=== PATIENT | female | born 2000 | race Caucasian/White ===

== ENCOUNTER 2019-08-29 12:24 | Outpatient (CLI) | payer OTHER ==
[2019-08-29 12:25] LABS: BHCG - Serum Negative (NEGATIVE); Pregs Control Background? CLEAR/WHITE (CLR/WHITE); Pregs Control Bar Appear? YES (CONTROL BAR)
--- NOTE | 2019-08-29 13:50 | NM ---
NUCLEAR MEDICINE THYROID ABLATION THERAPY: HISTORY: Malignant neoplasm of thyroid gland. Status post near-total thyroidectomy 07/14/2019. Uptake head carci noma. PROCEDURE: After discussing the risks, benefits, alternatives and radiation precaution issues with the patient, verbal and written consent was obtained for radioiodine ablation therapy. The patient verbalized understanding and was treated with 94 mCi Iodine 131 orally without complications. The patient will f ollow-up with Dr. Reeder
== END 2019-08-29 12:25 | disposition home or self-care (01) ==
LOC: NM 12:24
PROVIDERS: ATTEND Internal Medicine Endocrinology, Diabetes & Metabolism
DX: C73 Malignant neoplasm of thyroid gland (principal)
CPT/HCPCS: 36415; 79005; 84703; A9517

== ENCOUNTER 2019-09-08 12:45 | Outpatient (CLI) | payer OTHER ==
--- NOTE | 2019-09-08 14:30 | NM ---
WHOLE BODY RADIOIODINE SCAN POST ABLATION THERAPY: HISTORY: A 18-year-old female with malignant neoplasm of the thyroid gland status post near total thyroidectom y on 07/14/2019. The patient had radioiodine ablation therapy on 08/29/2019 with 94 mCi iodine 131. FINDINGS: There are foci of increased uptake in the thyroid bed consistent with thyroid remnant and cervical ly mph so metastases. Physiologic activity is seen in the GI and tracts. No other areas of abnor mal tracer localization are seen. 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 POS: OFF
== END 2019-09-08 12:46 | disposition home or self-care (01) ==
LOC: EDBD → NM 12:45
PROVIDERS: ATTEND Internal Medicine Endocrinology, Diabetes & Metabolism
DX: C73 Malignant neoplasm of thyroid gland (principal); C77.0 Secondary and unspecified malignant neoplasm of lymph nodes of head, face and neck
CPT/HCPCS: 78018